=== PATIENT | female | born 1945 | race Caucasian/White ===

== ENCOUNTER 2024-03-19 09:57 | Outpatient (RCR) | payer MEDICARE | END 2024-03-21 | LOC: PT 09:57 | PROVIDERS: ATTEND Physician Assistant | DX: S82.032D Displaced transverse fracture of left patella, subsequent encounter for closed fracture with routine healing (principal); M62.81 Muscle weakness (generalized); M25.561 Pain in right knee; M25.661 Stiffness of right knee, not elsewhere classified ==

== ENCOUNTER 2024-04-20 15:00 | Outpatient (RCR) | payer MEDICARE | END 2024-04-21 | LOC: PT 15:00 | PROVIDERS: ATTEND Physician Assistant | DX: S82.032D Displaced transverse fracture of left patella, subsequent encounter for closed fracture with routine healing (principal); M62.81 Muscle weakness (generalized); M25.561 Pain in right knee; M25.661 Stiffness of right knee, not elsewhere classified ==

== ENCOUNTER 2024-04-26 09:00 | Outpatient (RCR) | payer MEDICARE | END 2024-05-21 | LOC: PT 09:00 | PROVIDERS: ATTEND Physician Assistant | DX: M25.561 Pain in right knee (principal); S82.032D Displaced transverse fracture of left patella, subsequent encounter for closed fracture with routine healing; M25.661 Stiffness of right knee, not elsewhere classified; M62.81 Muscle weakness (generalized) ==